=== PATIENT | male | born 1975 | race Caucasian/White ===

== ENCOUNTER → 2023-07-18 06:27 | Day surgery (SDC) | payer OTHER, SELFPAY | LOC: GI 06:27 | PROVIDERS: ATTENDING PHYSICIAN Internal Medicine Gastroenterology | DX: K57.32 Diverticulitis of large intestine without perforation or abscess without bleeding (principal); K57.30 Diverticulosis of large intestine without perforation or abscess without bleeding; K64.8 Other hemorrhoids | CPT/HCPCS: 45378 ==

== ENCOUNTER 2023-12-20 12:44 | Emergency (ER) | payer OTHER, SELFPAY ==
[2023-12-20 12:45] VITALS: BP 131/91
--- NOTE | 2023-12-20 12:49 | ED.GENMED ---
ED Provider Triage
<SLICK Maddox - Last Filed: 12/20/23 12:51>
-
Patient seen by provider in Triage?: Seen in Triage
Attestation: A medical screening examination has been initiated by a qualified medical provider. Based on the assessment performed at this time, it has been determined that an emergent medical condition may exist and the patient has been informed
that further medical evaluation and possible additional diagnostic testing may be needed.
HPI: 48-year-old male presents to the ER for evaluation abdominal pain. He started with upper abdominal pain Sunday 6 days ago however pain has settled in his lower abdomen. He saw his family doctor prior to arrival and was very tender in the
right lower quadrant and was sent here to the ER for evaluation. No dysuria no hematuria no injury.
GENERAL: Alert , in no apparent distress
EYE: No visual abnormalities.
NECK: Trachea midline
ENT: No visible abnormalities.
LUNGS: No acute respiratory distress
NEUROLOGICAL: Alert and oriented
SKIN: Skin intact. No visible changes.
MUSCULOSKELETAL: Moving extremities normally
PSYCH: Normal and appropriate interaction.
This is a medical evaluation conducted in person to initiate diagnostic evaluation and provide initial therapeutics. Please see further documentation by the treating clinician.
History of Present Illness
<SLICK Maddox - Last Filed: 12/20/23 12:51>
General
Chief Complaint: Abdominal Pain
Time Seen by Provider: 12/20/23 13:29
<Gonsalo Eaton Jr., PA-C - Last Filed: 12/20/23 15:58>
General
Source: patient
Exam Limitations: none
Nursing documentation reviewed up to this point in time: agreed with
History of Present Illness
History of Present Illness:
48-year-old male presenting to the emergency department today with concerns of initially suprapubic pain now mainly to the right lower quadrant worsening over the past 5 days or so. Denies significant changes in bowel movements nausea vomiting
fevers chest pain or shortness of breath
Past History
<SLICK Maddox - Last Filed: 12/20/23 12:51>
Past History
ED Past Medical History: Psychiatric (Anxiety)
ED Past Surgical History: Orthopedic (Right thumb surgery) and Other ([place] teeth surgery)
Social History
Tobacco: Smoker
Alcohol: Occasional
Drug: None
Personal:
Living: with family
Employment: Employed
Review of Systems
<Gonsalo Eaton Jr., PA-C - Last Filed: 12/20/23 15:58>
Review of Systems
Allergies reviewed?: Yes
All Other Systems: ROS reviewed and negative except as documented in HPI and ROS
Phy Exam
<Gonsalo Eaton Jr., PA-C - Last Filed: 12/20/23 15:58>
Physical Exam
Physical Exam:
GENERAL: Alert , in no apparent distress
EYE: pupils equal and reactive
NECK: Supple, no significant adenopathy.
ENT: o/p clr, mmm.
CARDIAC: Regular rate and rhythm .
LUNGS: Clear breath sounds bilaterally, no acute respiratory distress, no wheezes/rales/rhonchi
ABDOMEN: Discomfort to the suprapubic region and right lower quadrant on examination. Otherwise no significant discomfort to the upper abdomen. No r/g, no cvat
NEUROLOGICAL: Alert and oriented, no focal neuro deficits
SKIN: Warm and dry, skin intact.
MUSCULOSKELETAL: No edema, well perfused.
PSYCH: Normal and appropriate interaction.
Course
<SLICK Maddox - Last Filed: 12/20/23 12:51>
Orders/Labs/Results
Orders:
Orders
12/20/23 12:51
IV Insert/Care/Rem.- Treatment PRN
12/20/23 13:06
Complete Blood Count/With Diff Urgent
Comprehensive Metabolic Panel Urgent
Lipase Urgent
12/20/23 13:09
Urinalysis Reflex To Culture Urgent
Date Specimen was Collected: 12/20/23
Time Specimen was Collected: 13:06
12/20/23 13:56
CT Abd/Pel (IV only)-DH only Urgent
Comment:
Reason For Exam: rlq pain
Abnormal Lab Results
12/20/23
13:06
WBC 12.1 H 10^3/uL
(4.8-10.8)
Abs Immat Gran (auto) 0.1 H 10^3/uL
(0-0.05)
Absolute Neuts (auto) 8.2 H 10^3/uL
(1.4-6.5)
Absolute Monos (auto) 0.8 H 10^3/uL
(0.1-0.6)
12/20/23 13:06
12/20/23 13:06
Vital Signs
Initial and Last Documented VS:
Initial Vital Signs
Temp Pulse Resp BP Pulse Ox
97.9 F 88 16 131/91 97
12/20/23 12:45 12/20/23 12:45 12/20/23 12:45 12/20/23 12:45 12/20/23 12:45
Last Documented Vital Signs
Temp Pulse Resp BP Pulse Ox
97.9 F 88 16 131/91 97
12/20/23 12:45 12/20/23 12:45 12/20/23 14:03 12/20/23 12:45 12/20/23 12:45
<Gonsalo Eaton Jr., PA-C - Last Filed: 12/20/23 15:58>
Orders/Labs/Results
Orders:
Orders
12/20/23 12:51
IV Insert/Care/Rem.- Treatment PRN
12/20/23 13:06
Complete Blood Count/With Diff Urgent
Comprehensive Metabolic Panel Urgent
Lipase Urgent
12/20/23 13:09
Urinalysis Reflex To Culture Urgent
Date Specimen was Collected: 12/20/23
Time Specimen was Collected: 13:06
12/20/23 13:56
CT Abd/Pel (IV only)-DH only Urgent
Comment:
Reason For Exam: rlq pain
Abnormal Lab Results
12/20/23
13:06
WBC 12.1 H 10^3/uL
(4.8-10.8)
Abs Immat Gran (auto) 0.1 H 10^3/uL
(0-0.05)
Absolute Neuts (auto) 8.2 H 10^3/uL
(1.4-6.5)
Absolute Monos (auto) 0.8 H 10^3/uL
(0.1-0.6)
12/20/23 13:06
12/20/23 13:06
Vital Signs
Initial and Last Documented VS:
Initial Vital Signs
Temp Pulse Resp BP Pulse Ox
97.9 F 88 16 131/91 97
12/20/23 12:45 12/20/23 12:45 12/20/23 12:45 12/20/23 12:45 12/20/23 12:45
Last Documented Vital Signs
Temp Pulse Resp BP Pulse Ox
97.9 F 88 16 131/91 97
12/20/23 12:45 12/20/23 12:45 12/20/23 14:03 12/20/23 12:45 12/20/23 12:45
<Gonsalo Eaton Jr., PA-C - Last Filed: 12/20/23 15:58>
MDM/Problems Addressed
MDM/Problems Addressed:
48-year-old male presenting to the emergency department today with concerns of lower abdominal pain mainly to the right lower quadrant at this point worsening over the past few days. On arrival here patient in no distress but does have reproducible
pain otherwise vital signs normal here. Labs showing slight white count of 12.1. CT scan was then obtained that showed diverticulitis. Patient appears stable for outpatient management. Will start on Augmentin otherwise will follow-up closely
with GI. Return precautions given.
<Gonsalo Eaton Jr., PA-C - Last Filed: 12/20/23 15:58>
*Critical Care Note
Total Time (30-74mins, 75-104mins- exclusive of procedures): Not Applicable
ED Attending Note
<SLICK Maddox - Last Filed: 12/20/23 12:51>
-
Portions of this chart may have been created with voice recognition software.� Occasional wrong word or��sound alike� substitutions may have occurred due to the inherent limitations of voice recognition software.
Discharge Plan
Departure
Patient Disposition: Home (Routine Discharge)
Date of Disposition: 12/20/23
Time of Disposition: 15:56
Patient with high blood pressure during this ER visit?: No
Condition: Good
Covid-19: Not Applicable
Discharge Problem:
Diverticulitis
Instructions: Diverticulitis (DC)
Prescriptions:
New
amoxicillin-pot clavulanate 875-125 mg tablet
1 tab PO BID 7 Days Qty: 14 0RF
No Action
escitalopram oxalate 10 MG tablet
10 mg PO DAILY
metronidazole 500 MG tablet
500 mg PO TID Qty: 21 0RF
levofloxacin 500 MG tablet
500 mg PO DAILY Qty: 7 0RF
levofloxacin 750 mg tablet
750 mg PO DAILY Qty: 6 0RF
metronidazole 500 mg tablet
500 mg PO TID Qty: 21 0RF
Referrals:
Nimo Casey PA-C [Family Provider] -
Activity Restrictions/Additional Instructions:
You came to the emergency department today with concerns of lower abdominal discomfort. You are found to have diverticulitis. Please take Augmentin twice daily for the next 7 days and slowly progress your diet. Please follow-up closely with GI
return to the emergency department for any worsening, new or concerning symptoms.
Interventions
Interventions:
*Risk Screen - Suicide Last Done: 12/20/23 12:45
*General Assessment Last Done: 12/20/23 12:45
*Neglect/Abuse Screening Last Done: 12/20/23 12:45
*ED COVID-19 Vaccine History Last Done: 12/20/23 12:45
FB-Raqzfp-Qfxnblujbb Assessment Last Done: 12/20/23 13:11
Discharge Date and Time
Print Language: [place]
[2023-12-20 13:11] VITALS: BMI 31.0
[2023-12-20 13:16] LABS: % Basophils 0.6 % (0-2); % Eosinophils 1.2 % (0-6); % Immature Granulocytes 0.4 % (0-0.5); % Lymphocytes 23.1 % (20.5-51.1); % Monocytes 6.7 % (1.7-9.3); Absolute Basophils 0.1 10^3/uL (0-0.2); Absolute Eosinophils 0.1 10^3/uL (0-0.7); Absolute Immature Granulocytes 0.1 10^3/uL (0-0.05); Absolute Lymphocytes 2.8 10^3/uL (1.2-3.4); Absolute Monocytes 0.8 10^3/uL (0.1-0.6); Absolute Neutrophils 8.2 10^3/uL (1.4-6.5); Hematocrit 40.6 % (39.0-52.0); Hemoglobin 14.3 g/dL (13.0-18.0); Mean Corp Hgb Conc. 35.2 g/dL (33.0-37.0); Mean Corpuscular Hgb 29.7 pg (27.0-31.0); Mean Corpuscular Volume 84.2 fL (80.0-94.0); Mean Platelet Volume 9.2 fL (7.4-10.4); Nucleated Red Blood Cells % 0 % (-); Platelet Count 282 10^3/uL (130-400); Red Blood Cell Count 4.82 10^6/uL (4.70-6.10); Red Cell Dist. Width 11.9 % (11.5-14.5); White Blood Cell Count 12.1 10^3/uL (4.8-10.8)
[2023-12-20 13:21] LABS: Urine Albumin Negative (Neg - Trace); Urine Bilirubin Negative (Negative); Urine Character Clear (Clear); Urine Color Straw; Urine Glucose Negative (Negative); Urine Ketone Negative (Negative); Urine Leukocyte Negative (Negative); Urine Nitrite Negative (Negative); Urine Occult Blood Negative (Negative); Urine Urobilinogen Negative (Neg - 1+)
[2023-12-20 13:42] LABS: ALT (SGPT) 29 U/L (0-50); AST (SGOT) 23 U/L (17-59); Albumin 4.6 g/dl (3.5-5.0); Alkaline Phosphatase 72 U/L (38-126); Blood Urea Nitrogen 12 mg/dl (9-20); Calcium 9.9 mg/dl (8.4-10.2); Carbon Dioxide 25 mmol/L (22-30); Chloride 103 mmol/L (98-107); Estimated Creatinine Clearance > 125 ml/min; Glucose 95 mg/dl (70-99); Lipase 123 U/L (23-300); Potassium 4.5 mmol/L (3.5-5.1); Sodium 139 mmol/L (135-145); Total Bilirubin 0.4 mg/dl (0.2-1.3); Total Protein 7.4 g/dl (6.3-8.2); eGFR > 60.00
[2023-12-20] MEDS: AUGMENTIN 875 MG/125 MG 1 TABLET PO (16:08)
[2023-12-20 16:11] VITALS: BP 128/78
== END 2023-12-20 16:20 | disposition home or self-care (01) ==
LOC: EMR 12:44
PROVIDERS: Nurse Practitioner; EMERGENCY PHYSICIAN Emergency Medicine; FAMILY PHYSICIAN Physician Assistant
DX: K57.32 Diverticulitis of large intestine without perforation or abscess without bleeding (principal); F41.9 Anxiety disorder, unspecified; F17.200 Nicotine dependence, unspecified, uncomplicated
CPT/HCPCS: 99284; 74177; 80053; 81003; 83690; 85025; Q9967